=== PATIENT | female | born 1945 ===

== ENCOUNTER 2021-06-10 09:46 | Inpatient (IN) | payer MEDICARE, BC ==
[~2021-06-10] VITALS: Ht 157.5 cm; Wt 61.2 kg
[2021-06-10] VITALS (377 sets, daily range): BP systolic 121–137; BP diastolic 45–86; PULSE 76–115; TEMP 97.9–98.3; O2SAT 50–100
--- NOTE | 2021-06-10 12:35 | NUR ---
PT arrived via EMS from [place] for further evaluation of metabolic acidosis and nephrology consult. PT as A&OX4 and able to trasnfer herself with x1 assist. Transport was uneventful. PT arrived with D5 1/2 NS WITH K & BICARB AT 75 ML/HR AND INSULIN 3 U/HR. VSS. PT orientated to ICU07.
[2021-06-10 13:25] LABS: BASO % 0.3 % (0.0-2.0); EOS % 0.1 % (0.0-4.0); GRAN # 9.2 K/mm3 (1.4-6.5); GRAN % 82.4 % (42.2-75.2); HEMOGLOBIN 11.3 g/dl (12.5-16.0); LYMPH # 1.2 K/mm3 (1.2-3.4); LYMPH % 10.2 % (20.0-51.0); MEAN CELL VOLUME 88 fl (80.0-100.0); MEAN CORPUSCULAR HEMOGLOBIN 30 pg (27-31); MEAN CORPUSCULAR HGB CONC 34 g/dl (33.0-37.0); MEAN PLATELET VOLUME 9.8 fl (7.4-10.4); MONO # 0.7 K/mm3 (0.1-0.6); MONO % 6.5 % (1.7-9.3); PLATELET COUNT 235 K/mm3 (130-400); RED BLOOD COUNT 3.81 M/mm3 (4.10-5.30); REDCELL DISTRIBUTION WIDTH-CV 13.8 % (11.5-14.5)
[2021-06-10 13:27] LABS: HEMATOCRIT 33.6 % (37.0-47.0)
[2021-06-10 13:42] LABS: BILIRUBIN,TOTAL 0.4 mg/dL (0.2-1.2); CALCIUM 8.1 mg/dL (8.4-10.2); CREATININE, serum 0.88 mg/dL (0.57-1.11); POTASSIUM 3.6 mmol/L (3.5-4.5); TOTAL PROTEIN 5.3 gm/dL (6.2-8.1)
[2021-06-10] MEDS ORDERED: IPRATROPIUM BROM3 M1 IH (16:03)
[2021-06-10] MEDS ORDERED: TYLENOL 500MG500 MG PO (16:05)
[2021-06-10] MEDS ORDERED: VENTOLIN0.09 MG IH (16:07)
[2021-06-10] MEDS ORDERED: ASPIRIN E.C. 8181 MG PO (16:22)
[2021-06-10] MEDS ORDERED: ALBUTEROL0.83 MG/ML IH (17:46)
[2021-06-10] MEDS ORDERED: ATROVENT I0.2 MG/1 M IH (17:48)
[2021-06-10] MEDS ORDERED: PULMICORT0.5 MG/2 M IH (17:49)
[2021-06-10] MEDS ORDERED: COREG 6.256.25 MG/TA PO (17:50)
[2021-06-10] MEDS ORDERED: BRILINTA90 MG PO (17:50)
[2021-06-10] MEDS ORDERED: ENTRESTO 24 MG1 EACH PO (17:51)
[2021-06-10] MEDS ORDERED: NOVOLOG FLEX100 U/ML SQ (17:51)
[2021-06-10] MEDS ORDERED: JANUVIA 100MG100 MG PO (17:52)
[2021-06-10] MEDS ORDERED: MUCINEX 60600 MG/TA1 PO (17:53)
[2021-06-10] MEDS ORDERED: CELEXA10 MG PO (17:53)
[2021-06-10] MEDS ORDERED: FLONASE NASAL S16 GM NS (17:54)
[2021-06-10] MEDS ORDERED: GLUCOSE TEST ST1 DEV MC (17:55)
[2021-06-10] MEDS ORDERED: CRESTOR20 MG PO (17:56)
[2021-06-10] MEDS ORDERED: ESTRACE0.1 MG/GM VG (17:56)
[2021-06-10] MEDS ORDERED: AMARYL 2MG T2 MG/TAB PO (17:57)
[2021-06-10] MEDS ORDERED: OMNICEF 300MG300 MG PO (17:57)
[2021-06-10] MEDS ORDERED: PREDNISONE10 MG PO (17:58)
[2021-06-10] MEDS ORDERED: K-TAB10 PO (17:59)
--- NOTE | 2021-06-10 19:20 | NUR ---
Received report from BROCK Langley. All medications verified and all questions answered. VSS. Patient on RA. Pt resting in bed. Hartman catheter in place, patent to dependent drainage with clear, yellow urine noted. No fluids running at this time. No concerns or complaints noted from patient at this time. Will resume care of patient at this time.
--- NOTE | 2021-06-10 21:12 | NUR ---
Dr. Trimble, paper folding machine operator, at bedside. Provider performed carotid massage and looked at patients heart rhythm on monitor. Received orders for high dose heparin gtt, NPO at midnight and would like to see patient in orthodontic lab technician tomorrow. Provider did not specifically discuss orthodontic lab technician procedure with patient at this time, no consent form signed at this time.
[2021-06-10 22:31] LABS: INR 1.1 (0.8-3.0)
[2021-06-10 22:33] LABS: PARTIAL THROMBOPLASTIN TIME 25.8 SECONDS (26.0-37.0)
[2021-06-11] VITALS (475 sets, daily range): BP systolic 122–144; BP diastolic 65–90; PULSE 51–163; TEMP 98.1–99.3; O2SAT 81–100
[2021-06-11 06:59] LABS: BASO # 0.1 K/mm3 (0.0-0.2); BASO % 0.4 % (0.0-2.0); EOS # 0.1 K/mm3 (0.0-0.7); EOS % 0.8 % (0.0-4.0); GRAN # 9.6 K/mm3 (1.4-6.5); GRAN % 69.6 % (42.2-75.2); HEMOGLOBIN 11.5 g/dl (12.5-16.0); LYMPH # 2.9 K/mm3 (1.2-3.4); LYMPH % 21.2 % (20.0-51.0); MEAN CELL VOLUME 87 fl (80.0-100.0); MEAN CORPUSCULAR HEMOGLOBIN 30 pg (27-31); MEAN CORPUSCULAR HGB CONC 34 g/dl (33.0-37.0); MEAN PLATELET VOLUME 10.4 fl (7.4-10.4); MONO % 7.4 % (1.7-9.3); PLATELET COUNT 245 K/mm3 (130-400); RED BLOOD COUNT 3.87 M/mm3 (4.10-5.30); REDCELL DISTRIBUTION WIDTH-CV 13.6 % (11.5-14.5)
[2021-06-11 07:09] LABS: CALCIUM 8.4 mg/dL (8.4-10.2); CREATININE, serum 0.73 mg/dL (0.57-1.11); POTASSIUM 3.4 mmol/L (3.5-4.5)
[2021-06-11 07:23] LABS: TROPONIN-I 0.217 ng/mL (0.00-0.033)
[2021-06-11 07:31] LABS: HEMATOCRIT 33.6 % (37.0-47.0)
[2021-06-11 07:38] LABS: INR 1.2 (0.8-3.0); PROTHROMBIN TIME 12.9 SECONDS (9.7-12.8)
[2021-06-11 07:40] LABS: PARTIAL THROMBOPLASTIN TIME 51.8 SECONDS (26.0-37.0)
--- NOTE | 2021-06-11 09:49 | NUR ---
Initial visit; Patient and her thanked Academic Registrar for looking in on her and offering prayer and to keep her in Academic Registrar's prayers.
--- NOTE | 2021-06-11 16:06 | NUR ---
Final Installer Inspector met with patient and patient's daughter, Annalisa (ph#[phone]) to discuss discharge planning. Patient lives in [place], [place] with her , Saeid and sees Dr. Acosta for primary care. Patient obtains medications from [facility] and also uses a CPAP and nebulizer at home. Patient reports independence with ADLS and plans to return home at time of discharge. Patient advised her , Saeid is her DPOA-HC. SW reviewed PT/OT recommendation for Home Health services and patient states she will think about it. Discharge Plan: Home
--- NOTE | 2021-06-11 18:30 | NUR ---
PATIENT SEEN TODAY BY ENT, CARDIOLOGY, AND HAD A SPEECH CONSULT FOR A SWALLOW STUDY. THE AMOUNT OF BLOOD IN THE PATIENT'S SPUTUM HAS DECREASED HAS THE AMOUNT OF SPUTUM IN GENERAL. PATIENT TOLERATED AN ADVANCEMENT IN HER DIET AND WAS ABLE TO SWALLOW LIQUIDS WITH NO PROBLEMS OF THEM "GETTING STUCK" OR HAVING TO SPIT. PATIENT HAD A BM TODAY THAT LOOKED DARK IN NATURE; RAN AN OCCULT BLOOD TEST THAT CAME BACK POSITIVE AND RESULTS WERE CALLED IN TO EMILIA WHO STARTED HER ON A PPI. PATIENT MAY NEED TO HAVE GI CONSULTED, AND THIS WAS PASSED ALONG IN REPORT TO THE MEDICAL NURSE NANCY WHO TOOK OVER PATIENT CARE AFTER PATIENT WAS TRANSFERRED UP TO THE MEDICAL FLOOR.
--- NOTE | 2021-06-11 20:45 | NUR ---
Arrived to room 352 via wheelchair from ICU. Assessment complete. A&Ox3. Denies pain/nausea/shortness of breath. VS stable. Oriented to room. TELE reports S-DYS. Hickey cath with clear yellow urine. Noted to have areas of brusing to bilat upper ext/bilat lower ext. INTs X2 to right forearm/left upper arm-both flush without difficulty. Plan of care discussed for this shift to include meds/TELE/calling for questions/concerns. Verbalizes understanding/denies needs. Call light in reach. Will monitor.
--- NOTE | 2021-06-11 22:10 | NUR ---
Noticed pt has home cpap in room, talked with her about wearing it tonight, letting her know I can get it set up for her. Pt does not want to use it.
[2021-06-12] VITALS (7 sets, daily range): BP systolic 95–131; BP diastolic 45–56; PULSE 69–91; TEMP 97.6–98.6
--- NOTE | 2021-06-12 05:07 | NUR ---
Pt had an uneventful night. Denied pain/nausea/shortness of breath. VS remained stable. Hartman cath with clear yellow urine. Blood sugars WNL. Denies current needs. Call light in reach. Will monitor.
[2021-06-12 07:12] LABS: CALCIUM 8.2 mg/dL (8.4-10.2); CREATININE, serum 0.62 mg/dL (0.57-1.11); MAGNESIUM 1.9 mg/dL (1.6-2.6); POTASSIUM 3.4 mmol/L (3.5-4.5)
[2021-06-12 07:52] LABS: MEAN CELL VOLUME 87 fl (80.0-100.0); MEAN CORPUSCULAR HGB CONC 34 g/dl (33.0-37.0); MEAN PLATELET VOLUME 10.5 fl (7.4-10.4); PLATELET COUNT 207 K/mm3 (130-400); RED BLOOD COUNT 3.23 M/mm3 (4.10-5.30); REDCELL DISTRIBUTION WIDTH-CV 13.6 % (11.5-14.5)
[2021-06-12 07:53] LABS: HEMOGLOBIN 9.5 g/dl (12.5-16.0); MEAN CORPUSCULAR HEMOGLOBIN 29 pg (27-31)
--- NOTE | 2021-06-13 00:32 | NUR ---
ASKED PATIENT IF SHE WAS IN PAIN, SHE STATES 0/10. ASKED PATIENT IF SHE TAKES ACETAMINOPHEN EVERY 6HRS AT HOME FOR CHRONIC PAIN, AND SHE STATES "NO, I ONLY USE IT OCCASIONALLY FOR PAIN, NOT ALL THE TIME THOUGH." PT REFUSED TYLENOL SHE STATES THAT SHE WAS UNSURE WHY THEY WERE GIVING IT TO HER THAT OFTEN. UPON CHECK OF MED RECONCILIATION IT APPEARS THE PERSON WHO DID THE MED REC DID NOT SELECT "PRN" FOR THE TYLENOL. UPDATED THE MED REC, AND INFORMED THE PATIENT THAT SHE HAS THE RIGHT TO REFUSE A MEDICATION IF SHE DOES NOT FEEL SHE NEEDS IT. NO OTHER CONCERNS AT THIS TIME.
[2021-06-13 03:40] VITALS: BP 110/41; PULSE 71; TEMP 98.1
--- NOTE | 2021-06-13 07:24 | NUR ---
PT HAD UNEVENTFUL NIGHT. DENIES ANY PROBLEMS. REPORT GIVEN TO BROCK TIJERINA
[2021-06-13 07:42] LABS: CALCIUM 8.8 mg/dL (8.4-10.2); CREATININE, serum 0.75 mg/dL (0.57-1.11); POTASSIUM 3.7 mmol/L (3.5-4.5)
[2021-06-13 07:45] VITALS: BP 128/57; PULSE 58; TEMP 98.3
[2021-06-13 07:49] LABS: BASO % 0.6 % (0.0-2.0); EOS # 0.3 K/mm3 (0.0-0.7); EOS % 4.4 % (0.0-4.0); GRAN # 3.5 K/mm3 (1.4-6.5); GRAN % 51.3 % (42.2-75.2); HEMATOCRIT 28.3 % (37.0-47.0); HEMOGLOBIN 9.5 g/dl (12.5-16.0); LYMPH # 2.1 K/mm3 (1.2-3.4); LYMPH % 30.7 % (20.0-51.0); MEAN CELL VOLUME 89 fl (80.0-100.0); MEAN CORPUSCULAR HEMOGLOBIN 30 pg (27-31); MEAN CORPUSCULAR HGB CONC 34 g/dl (33.0-37.0); MEAN PLATELET VOLUME 10.8 fl (7.4-10.4); MONO # 0.8 K/mm3 (0.1-0.6); MONO % 12.4 % (1.7-9.3); PLATELET COUNT 193 K/mm3 (130-400); RED BLOOD COUNT 3.19 M/mm3 (4.10-5.30); REDCELL DISTRIBUTION WIDTH-CV 13.2 % (11.5-14.5)
--- NOTE | 2021-06-13 08:45 | NUR ---
Shift assessment complete. Pt up in recliner eating breakfast. A&Ox4. Heart rhythm remains irregular. Life vest in place. Denies pain, SOA, or other concerns. Vitals stable. Pt interested in going to a SNF prior to returning home. Hospitalist and social work updated. Continuing to monitor.
[2021-06-13 11:40] VITALS: BP 121/51; PULSE 74; TEMP 97.9
[2021-06-13 16:13] VITALS: BP 126/54; PULSE 79; TEMP 98.2
[2021-06-13 19:53] VITALS: BP 131/50; PULSE 77; TEMP 98.1
[2021-06-13 23:17] VITALS: BP 133/46; PULSE 79; TEMP 98.8
--- NOTE | 2021-06-13 23:30 | NUR ---
LIFE VEST STARTED MAKING NOISE. TELE SHOWED SINUS RHYTHM. NO ALARMING VITAL SIGN READINGS. MESSED WITH VEST UNTIL IT JUST STOPPED BEEPING.
[2021-06-14] VITALS (13 sets, daily range): BP systolic 107–166; BP diastolic 48–76; PULSE 67–96; TEMP 96.8–98
--- NOTE | 2021-06-14 01:00 | NUR ---
LIFE VEST WOULD NOT STOP BEEPING. PT INSISTED IT BE TURNED OFF. WILL MONITOR TLEMETRY FOR ANY CHANGES.
[2021-06-14 06:49] LABS: BASO % 0.4 % (0.0-2.0); EOS # 0.4 K/mm3 (0.0-0.7); EOS % 4.6 % (0.0-4.0); GRAN # 4.3 K/mm3 (1.4-6.5); GRAN % 54.7 % (42.2-75.2); LYMPH # 2.2 K/mm3 (1.2-3.4); LYMPH % 28.4 % (20.0-51.0); MEAN CELL VOLUME 88 fl (80.0-100.0); MEAN CORPUSCULAR HGB CONC 34 g/dl (33.0-37.0); MEAN PLATELET VOLUME 10.7 fl (7.4-10.4); MONO # 0.9 K/mm3 (0.1-0.6); MONO % 11.4 % (1.7-9.3); PLATELET COUNT 210 K/mm3 (130-400); RED BLOOD COUNT 3.26 M/mm3 (4.10-5.30); REDCELL DISTRIBUTION WIDTH-CV 13.2 % (11.5-14.5)
[2021-06-14 07:02] LABS: CALCIUM 8.8 mg/dL (8.4-10.2); CREATININE, serum 0.9 mg/dL (0.57-1.11); POTASSIUM 3.9 mmol/L (3.5-4.5)
[2021-06-14 07:03] LABS: HEMATOCRIT 28.8 % (37.0-47.0); HEMOGLOBIN 9.7 g/dl (12.5-16.0); MEAN CORPUSCULAR HEMOGLOBIN 30 pg (27-31)
--- NOTE | 2021-06-14 08:30 | NUR ---
PICC canceled by Dr. Beavers
--- NOTE | 2021-06-14 10:27 | NUR ---
PT HELPED UP TO THE RECLINER. MORNING MEDICATIONS GIVEN. SHIFT ASSESSMENT COMPLETED. PT REPORTS SOME DIZZINESS AFTER WALKING TO RECLINER, BP READING LOW, DANIEL WILSON NOTIFIED. DENIES ANY OTHER PAIN OR NEEDS AT THIS TIME. NPO FOR PROCEDURE. WILL CONTINUE TO MONITOR.
--- NOTE | 2021-06-14 21:16 | NUR ---
Assessment complete and charted. Patient resting in recliner. Denies needs at this time. Call light in reach.
[2021-06-15 03:37] VITALS: BP 127/53; PULSE 71; TEMP 97.9
--- NOTE | 2021-06-15 05:41 | NUR ---
Patient had uneventful night. Refused tylenol during night. Resting in bed this Am. Call light in reach.
[2021-06-15 06:40] LABS: BASO % 0.5 % (0.0-2.0); EOS # 0.3 K/mm3 (0.0-0.7); EOS % 3.9 % (0.0-4.0); GRAN # 3.5 K/mm3 (1.4-6.5); GRAN % 54.3 % (42.2-75.2); LYMPH # 1.8 K/mm3 (1.2-3.4); LYMPH % 28.1 % (20.0-51.0); MEAN CELL VOLUME 91 fl (80.0-100.0); MEAN CORPUSCULAR HGB CONC 33 g/dl (33.0-37.0); MEAN PLATELET VOLUME 10.7 fl (7.4-10.4); MONO # 0.8 K/mm3 (0.1-0.6); MONO % 12.4 % (1.7-9.3); PLATELET COUNT 225 K/mm3 (130-400); RED BLOOD COUNT 3.09 M/mm3 (4.10-5.30); REDCELL DISTRIBUTION WIDTH-CV 13.3 % (11.5-14.5)
[2021-06-15 06:49] LABS: HEMOGLOBIN 9.2 g/dl (12.5-16.0); MEAN CORPUSCULAR HEMOGLOBIN 30 pg (27-31)
--- NOTE | 2021-06-15 06:50 | NUR ---
Report given to BROCK Mar
[2021-06-15 07:08] LABS: CALCIUM 8.4 mg/dL (8.4-10.2); CREATININE, serum 0.73 mg/dL (0.57-1.11); POTASSIUM 3.8 mmol/L (3.5-4.5)
[2021-06-15 08:05] VITALS: BP 156/53; PULSE 76; TEMP 98.2
--- NOTE | 2021-06-15 08:39 | NUR ---
PT SITTING UP IN RECLINER. MORNING MEDICATIONS GIVEN. SHIFT ASSESSMENT COMPLETED. PT DENIES ANY PAIN OR NEEDS. IS WEARING LIFE VEST AT THIS TIME. MINER DRAINING WELL. WILL CONTINUE TO MONITOR.
[2021-06-15] MEDS ORDERED: FERROUS SU325 MG/TAB PO (09:52)
[2021-06-15] MEDS ORDERED: BRILINTA90 MG PO (09:52)
[2021-06-15] MEDS ORDERED: PACERONE400 MG PO (09:54)
[2021-06-15] MEDS ORDERED: LOPRESSOR 225 MG/TAB PO (09:58)
[2021-06-15] MEDS ORDERED: CORDARONE200 MG/TAB PO (09:58)
[2021-06-15] MEDS ORDERED: PROTONIX 40MG T40 MG PO (09:59)
[2021-06-15] MEDS ORDERED: BASAGLAR K100 UNIT/1 SQ (10:06)
--- NOTE | 2021-06-15 10:54 | NUR ---
ASHLEY D/C. ISIDRA D/C. PT'S TRUNG REQUESTING TO REVIEW DISCHARGE MEDS WITH PHARMACIST BEFORE LEAVING, PHARMACIST NOTIFIED. IN SHOWER AT THIS TIME.
--- NOTE | 2021-06-15 12:31 | NUR ---
DISCHARGE INSTRUCTIONS GIVEN. ALLL QUESTIONS ANSWERED.
--- NOTE | 2021-06-15 12:46 | NUR ---
home weatherizing worker met with patient and patient's daughter after rounding to discuss home health. Patient would like to be established with [facility]. Referral information faxed to [phone]. Patient presented MCR.IM form. Read form aloud to patient and daughter. Patient verbalizes her understanding of form. Singed copy place in patient's chart and original provided back to patient. Discharge plan: Home with [facility]
== END 2021-06-15 13:57 | disposition home health service (06) | DRG 638 ==
LOC: MEDICAL 09:46 → ICU 11:45 → MEDICAL 12:29 → ICU 13:01 → MEDICAL 06-11 20:00
PROVIDERS: Internal Medicine; Internal Medicine Gastroenterology; Nurse Practitioner Family; Physician Assistant; ADMIT Student in an Organized Health Care Education/Training Program
PROC: 0DJ08ZZ Inspection of Upper Intestinal Tract, Via Natural or Artificial Opening Endoscopic (ICD-10-PCS; principal; 2021-06-14 12:15)
DX: E11.65 Type 2 diabetes mellitus with hyperglycemia (principal); I48.92 Unspecified atrial flutter; K92.1 Melena; I50.20 Unspecified systolic (congestive) heart failure; E87.2 Acidosis; I25.10 Atherosclerotic heart disease of native coronary artery without angina pectoris; J44.9 Chronic obstructive pulmonary disease, unspecified; F32.A Depression, unspecified; I48.91 Unspecified atrial fibrillation; I11.0 Hypertensive heart disease with heart failure; R04.0 Epistaxis; K22.2 Esophageal obstruction; K44.9 Diaphragmatic hernia without obstruction or gangrene; D64.9 Anemia, unspecified; E78.5 Hyperlipidemia, unspecified; D72.829 Elevated white blood cell count, unspecified; T38.3X5A Adverse effect of insulin and oral hypoglycemic [antidiabetic] drugs, initial encounter; E87.6 Hypokalemia; K20.90 Esophagitis, unspecified without bleeding; Z95.5 Presence of coronary angioplasty implant and graft; I25.2 Old myocardial infarction; Z86.73 Personal history of transient ischemic attack (TIA), and cerebral infarction without residual deficits; Z79.82 Long term (current) use of aspirin; Z79.4 Long term (current) use of insulin; Z23 Encounter for immunization
CPT/HCPCS: 99223-AI; 99232-AI; 99233-AI; 99239; C9113; J1644; J1815; J2704; J3480